=== PATIENT | male | born 1935 | race Caucasian/White ===

== ENCOUNTER 2022-05-06 10:34 | Inpatient (IN) | payer MEDICARE ==
[~2022-05-06] VITALS: Ht 180.3 cm; Wt 106.6 kg
[2022-05-06] MEDS ORDERED: DIATRIZOATE MEGL/DIATRIZOA SOD 30 ML BTL PO ONE (11:13)
[2022-05-06 11:21] LABS: BASOPHILS # (AUTO) 0.1 (0.0-0.1); BASOPHILS % 0.9 % (0.0-1.0); EOSINOPHILS # (AUTO) 0.1 (0.0-0.4); EOSINOPHILS % 1.6 % (0.0-6.0); HEMATOCRIT 35.3 % (38.2-49.6); HEMOGLOBIN 11.3 g/dL (14.0-18.0); LYMPHOCYTES # (AUTO) 0.4 (1.0-3.2); LYMPHOCYTES % 6.1 % (18.0-39.1); MEAN CORPUSCULAR HEMOGLOBIN 29.3 pg (28-32); MEAN CORPUSCULAR VOLUME 91.5 fL (81-99); MONOCYTES # (AUTO) 0.8 (0.2-0.8); MONOCYTES % 10.9 % (4.4-11.3); NEUTROPHILS # (AUTO) 5.5 (2.1-6.9); NEUTROPHILS % 80.1 % (38.7-80.0); PLATELET COUNT 256 x10e3/uL (140-360); RED BLOOD COUNT 3.86 x10e6/uL (4.3-5.7); RED CELL DISTRIBUTION WIDTH 14.7 % (11.7-14.4)
[2022-05-06] MEDS ORDERED: Morphine 4mg INJECTION 4 MG/ML INJ IV PRN (11:30)
[2022-05-06] MEDS ORDERED: ONDANSETRON HCL INJ 2MG/ML 2ML 2 MG/ML VIAL IV PRN ×2 (11:30→12:15)
[2022-05-06] MEDS ORDERED: SODIUM CHLORIDE 0.9% 1000ML 1,000 ML IV ONE (11:30)
[2022-05-06 11:40] LABS: BACTERIA,URINE FEW /HPF; CLARITY,URINE CLOUDY (CLEAR); COLOR,URINE YELLOW (YELLOW); EPITHELIAL CELLS,URINE FEW /LPF; KETONES,URINE 2+ (NEGATIVE); LEUKOCYTE ESTERASE ,URINE SMALL (NEGATIVE); NITRITE,URINE NEGATIVE (NEGATIVE); PROTEIN,URINE DIPSTICK 1+ (NEGATIVE); RBC,URINE >50 /HPF (0-5); URINE UROBILINOGEN 0.2 mg/dL (0.2 - 1); WBC,URINE (MAN) >50 /HPF (0-5)
[2022-05-06 11:41] LABS: ALBUMIN 3.3 g/dL (3.5-5.0); ANION GAP 15.8 mmol/L (8-16); CALCIUM 8.7 mg/dL (8.4-10.2); CREATININE, SERUM 0.7 mg/dL (0.72-1.25); POTASSIUM 3.8 mmol/L (3.5-5.1)
[2022-05-06] MEDS ORDERED: LIDOCAINE 1% W/EPINEPHRINE 20 ML VIAL INJ ONE (12:00)
[2022-05-06] MEDS ORDERED: IOPAMIDOL 370 MG/ML 100 ML INFUS..BTL INJ ONE (12:10)
[2022-05-06] MEDS ORDERED: SODIUM CHLORIDE FLUSH 10 ML SYR INJ PRN (12:15)
[2022-05-06] MEDS: MEROPENEM 1 GM in SODIUM CHLORIDE 0.9% 100 ML IV SCH (17:45)
[2022-05-06 18:21] VITALS: BP 112/62
[2022-05-06] MEDS ORDERED: IPRATROPIU0.2 MG/1 M INH (18:35)
[2022-05-06] MEDS ORDERED: AMLODIPINE BESY10 MG PO (18:35)
[2022-05-06] MEDS ORDERED: TYLENOL325 MG PO (18:35)
[2022-05-06] MEDS ORDERED: LOSARTAN POTASS25 MG PO (18:35)
[2022-05-06] MEDS ORDERED: DULCOLAX10 MG PR (18:35)
[2022-05-06] MEDS ORDERED: BENZONATATE200 MG PO (18:35)
[2022-05-06] MEDS ORDERED: HYDRALAZINE HCL25 MG PO (18:35)
[2022-05-06] MEDS ORDERED: GUAIFENESIN600 M1 PO (18:35)
[2022-05-06 20:00] VITALS: BP 139/65
[2022-05-07] VITALS: BP 136/50
[2022-05-07] MEDS: MEROPENEM 1 GM in SODIUM CHLORIDE 0.9% 100 ML IV SCH ×3 (02:32→18:30)
[2022-05-07 04:00] VITALS: BP 149/64
[2022-05-07] MEDS ORDERED: POLYETHYLENE GLYCOL 3350 17 GM PACK PO PRN (05:30)
[2022-05-07] MEDS ORDERED: ACETAMINOPHEN 325 MG TAB PO PRN (05:30)
[2022-05-07] MEDS ORDERED: HYDRALAZINE HCL 20 MG/ML VIAL IV PRN (05:30)
[2022-05-07 05:35] LABS: BASOPHILS # (AUTO) 0.1 (0.0-0.1); BASOPHILS % 1.2 % (0.0-1.0); EOSINOPHILS # (AUTO) 0.1 (0.0-0.4); EOSINOPHILS % 1.5 % (0.0-6.0); HEMATOCRIT 36.9 % (38.2-49.6); HEMOGLOBIN 11.9 g/dL (14.0-18.0); LYMPHOCYTES # (AUTO) 0.4 (1.0-3.2); MEAN CORPUSCULAR HEMOGLOBIN 29.4 pg (28-32); MEAN CORPUSCULAR HGB CONC 32.2 g/dL (31-35); MEAN CORPUSCULAR VOLUME 91.1 fL (81-99); MONOCYTES # (AUTO) 0.6 (0.2-0.8); MONOCYTES % 9.8 % (4.4-11.3); NEUTROPHILS # (AUTO) 5.3 (2.1-6.9); PLATELET COUNT 273 x10e3/uL (140-360); RED BLOOD COUNT 4.05 x10e6/uL (4.3-5.7); RED CELL DISTRIBUTION WIDTH 14.8 % (11.7-14.4)
[2022-05-07] MEDS ORDERED: BISACODYL 10 MG SUPP PR PRN (05:45)
[2022-05-07] MEDS: BENZONATATE 100 MG CAP PO PRN ×2 (05:51→20:34)
[2022-05-07] MEDS: SODIUM CHLORIDE 0.9% 1000ML 1,000 ML IV SCH ×2 (05:51→18:50)
[2022-05-07] MEDS: GUAIFENESIN 600 MG TAB PO SCH ×2 (05:51→16:32)
[2022-05-07 06:11] LABS: ANION GAP 14.3 mmol/L (8-16); CALCIUM 8.6 mg/dL (8.4-10.2); CREATININE, SERUM 0.66 mg/dL (0.72-1.25); POTASSIUM 4.3 mmol/L (3.5-5.1)
[2022-05-07 06:38] LABS: MAGNESIUM 1.6 MG/DL (1.3-2.1); PHOSPHORUS 2.4 MG/DL (2.3-4.7)
[2022-05-07 06:58] LABS: THYROID STIMULATING HORMONE 8.252 uIU/mL (0.350-4.940)
[2022-05-07 08:40] VITALS: BP 131/53
[2022-05-07] MEDS ORDERED: MAGNESIUM SULFATE 2GM/50ML 50 ML IV ONE ×2 (08:45→14:00)
[2022-05-07 09:00] VITALS: BP 131/53
[2022-05-07] MEDS ORDERED: COLLAGENASE 5 GM TUBE TOP SCH (09:00)
[2022-05-07 09:24] LABS: FREE THYROXINE INDEX 1.7359 (1.4-3.8)
[2022-05-07] MEDS: LOSARTAN POTASSIUM 25 MG TAB PO SCH (09:57)
[2022-05-07] MEDS: AMLODIPINE BESYLATE 10 MG TAB PO SCH (09:57)
[2022-05-07] MEDS: FAMOTIDINE 20 MG TAB PO SCH ×2 (09:57→16:32)
[2022-05-07] MEDS: DOCUSATE SODIUM 100 MG CAP PO SCH ×2 (09:57→16:32)
[2022-05-07] MEDS ORDERED: ONDANSETRON HCL 4 MG ORAL DISINTEGRATING TAB PO PRN (11:15)
[2022-05-07 13:05] LABS: BLOOD UREA NITROGEN < 5 mg/dL (7-26); GLUCOSE 69 mg/dL (74-118); OSMOLALITY,SERUM 247 mOsm/kg (278-305); SODIUM 125 mmol/L (136-145)
[2022-05-07 16:49] VITALS: BP 133/66
[2022-05-07] MEDS ORDERED: METOPROLOL TARTRATE INJ 1 MG/ML VIAL IV PRN (17:00)
[2022-05-07 20:00] VITALS: BP 162/61
[2022-05-07] MEDS: IPRATROPIUM BROMIDE 0.02% 2.5 ML NEB INH PRN (21:10)
[2022-05-08] VITALS (7 sets, daily range): BP systolic 116–156; BP diastolic 6–91
[2022-05-08] MEDS: MEROPENEM 1 GM in SODIUM CHLORIDE 0.9% 100 ML IV SCH ×3 (02:27→18:25)
[2022-05-08] MEDS: GUAIFENESIN 600 MG TAB PO SCH ×2 (05:00→17:00)
[2022-05-08 05:53] LABS: BASOPHILS # (AUTO) 0.1 (0.0-0.1); BASOPHILS % 1.1 % (0.0-1.0); EOSINOPHILS # (AUTO) 0.1 (0.0-0.4); EOSINOPHILS % 2.2 % (0.0-6.0); HEMATOCRIT 34.3 % (38.2-49.6); HEMOGLOBIN 11.1 g/dL (14.0-18.0); LYMPHOCYTES # (AUTO) 0.5 (1.0-3.2); LYMPHOCYTES % 8.4 % (18.0-39.1); MEAN CORPUSCULAR HEMOGLOBIN 29.2 pg (28-32); MEAN CORPUSCULAR HGB CONC 32.4 g/dL (31-35); MEAN CORPUSCULAR VOLUME 90.3 fL (81-99); MONOCYTES # (AUTO) 0.5 (0.2-0.8); MONOCYTES % 9.7 % (4.4-11.3); NEUTROPHILS # (AUTO) 4.2 (2.1-6.9); PLATELET COUNT 248 x10e3/uL (140-360); RED CELL DISTRIBUTION WIDTH 14.8 % (11.7-14.4)
[2022-05-08 06:20] LABS: ANION GAP 15.9 mmol/L (8-16); CALCIUM 7.9 mg/dL (8.4-10.2); CREATININE, SERUM 0.65 mg/dL (0.72-1.25); POTASSIUM 3.9 mmol/L (3.5-5.1)
[2022-05-08] MEDS: SODIUM CHLORIDE 0.9% 1000ML 1,000 ML IV SCH (08:10)
[2022-05-08] MEDS: AMLODIPINE BESYLATE 10 MG TAB PO SCH (08:24)
[2022-05-08] MEDS: FAMOTIDINE 20 MG TAB PO SCH ×2 (08:24→16:59)
[2022-05-08] MEDS: DOCUSATE SODIUM 100 MG CAP PO SCH ×2 (08:24→17:00)
[2022-05-08] MEDS: LOSARTAN POTASSIUM 25 MG TAB PO SCH (08:25)
[2022-05-08] MEDS ORDERED: MAGNESIUM SULFATE 2GM/50ML 50 ML IV ONE ×2 (13:00→15:00)
[2022-05-08] MEDS: IPRATROPIUM BROMIDE 0.02% 2.5 ML NEB INH PRN (19:05)
[2022-05-08] MEDS: BENZONATATE 100 MG CAP PO PRN (22:56)
[2022-05-09] VITALS (7 sets, daily range): BP systolic 92–155; BP diastolic 51–88
[2022-05-09 05:47] LABS: ANION GAP 12.7 mmol/L (8-16); CALCIUM 7.7 mg/dL (8.4-10.2); CREATININE, SERUM 0.69 mg/dL (0.72-1.25); POTASSIUM 3.7 mmol/L (3.5-5.1)
[2022-05-09] MEDS: MEROPENEM 1 GM in SODIUM CHLORIDE 0.9% 100 ML IV SCH ×3 (05:58→17:21)
[2022-05-09] MEDS: SODIUM CHLORIDE 0.9% 1000ML 1,000 ML IV SCH ×2 (05:58→13:47)
[2022-05-09] MEDS: GUAIFENESIN 600 MG TAB PO SCH ×2 (05:58→17:20)
[2022-05-09] MEDS: IPRATROPIUM BROMIDE 0.02% 2.5 ML NEB INH PRN ×2 (06:56→14:40)
[2022-05-09] MEDS: LOSARTAN POTASSIUM 25 MG TAB PO SCH (09:00)
[2022-05-09] MEDS: FAMOTIDINE 20 MG TAB PO SCH ×2 (10:02→17:21)
[2022-05-09] MEDS: DOCUSATE SODIUM 100 MG CAP PO SCH ×2 (10:03→17:21)
[2022-05-10] VITALS: BP 170/72
[2022-05-10] MEDS: SODIUM CHLORIDE 0.9% 1000ML 1,000 ML IV SCH (00:10)
[2022-05-10] MEDS: MEROPENEM 1 GM in SODIUM CHLORIDE 0.9% 100 ML IV SCH ×2 (02:30→09:58)
[2022-05-10] MEDS: GUAIFENESIN 600 MG TAB PO SCH (05:43)
[2022-05-10] MEDS: IPRATROPIUM BROMIDE 0.02% 2.5 ML NEB INH PRN (06:46)
[2022-05-10 08:00] VITALS: BP 141/59
[2022-05-10] MEDS: FAMOTIDINE 20 MG TAB PO SCH ×2 (08:00→17:23)
[2022-05-10 08:13] VITALS: BP 141/59
[2022-05-10] MEDS ORDERED: AMLODIPINE BESYLATE 5 MG TAB PO SCH (09:00)
[2022-05-10] MEDS: LOSARTAN POTASSIUM 25 MG TAB PO SCH (09:57)
[2022-05-10] MEDS: DOCUSATE SODIUM 100 MG CAP PO SCH ×2 (09:57→17:23)
[2022-05-10 11:23] VITALS: BP 134/81
[2022-05-10 15:24] VITALS: BP 142/67
== END 2022-05-10 17:51 | DRG 181 ==
LOC: ER 10:50 → ERHOLD 12:07 → MED/SURG2 15:06
PROVIDERS: ADMIT Internal Medicine; ATTEND Internal Medicine
DX: C34.02 Malignant neoplasm of left main bronchus (principal); C34.32 Malignant neoplasm of lower lobe, left bronchus or lung; E87.1 Hypo-osmolality and hyponatremia; N39.0 Urinary tract infection, site not specified; Z85.46 Personal history of malignant neoplasm of prostate; Z74.01 Bed confinement status; I48.91 Unspecified atrial fibrillation; R10.9 Unspecified abdominal pain; R13.10 Dysphagia, unspecified; R91.8 Other nonspecific abnormal finding of lung field; E83.42 Hypomagnesemia; Z66 Do not resuscitate; D64.9 Anemia, unspecified; I10 Essential (primary) hypertension; H91.93 Unspecified hearing loss, bilateral; E03.9 Hypothyroidism, unspecified; E16.1 Other hypoglycemia; R33.9 Retention of urine, unspecified; Z20.822 Contact with and (suspected) exposure to COVID-19
CPT/HCPCS: 0223U; 36415; 71250; 74177; 74230; 80048; 80053; 80061; 81001; 82947; 83036; 83735; 84100; 84295; 84436; 84443; 84479; 84481; 84520; 85025; 87086; 93005; 93306; 94640; 94799; 99252; 99284; J0696; J2185; J2270; J2405; J3475; J7030; J7050; Q9963; Q9967